=== PATIENT | female | born 1980 | race Caucasian/White ===

== ENCOUNTER → 2016-04-10 | Day surgery (SDC) | payer OTHER ==
[~2016-04-10] VITALS: Ht 175.3 cm; Wt 72.1 kg
[~2016-04-10] MED LIST: ACETAMINOPHEN 650 MG SUPP As Ordered ONE; BIOT1CAP2 PO; KETOROLAC 30 MG/ML VIAL (J1885) IV SCH; KETOROLAC 60 MG/2 ML VIAL (J1885) As Ordered ONE; LIDOCAINE 2% INJ 100 MG/5 ML SDV (FOR ANES.) As Ordered ONE; LR 1,000 ML IV SCH; MIDAZOLAM INJ 2 MG/2 ML VIAL (J2250) As Ordered ONE; MULTCAP8 PO; NAPR220C PO; NS 1,000 ML IV SCH; ONDANSETRON 4MG/2ML VIAL (J2405) As Ordered ONE; PROPOFOL 200 MG/20 ML VIAL As Ordered ONE; SODIUM CHLORIDE 0.9% 1000 ML IV ONE; dexameTHASONE 4 MG/ML 1ML VIAL (J1100) As Ordered ONE; diphenhydrAMINE 25 MG CAP PO ONE; fentaNYL 100 MCG/2 ML INJECTION (J3010) As Ordered ONE
[2016-04-10 08:52] LABS: MEAN CORPUSCULAR HEMOGLOBIN 32.4 pg (27.0-33.0); MEAN CORPUSCULAR HGB CONC 34.7 g/dl (32.0-36.5); MEAN CORPUSCULAR VOLUME 93.6 fl (80.0-96.0); RED CELL DISTRIBUTION WIDTH 11.4 % (11.5-14.5)
[2016-04-10 09:11] LABS: ANION GAP 9 MEQ/L (8-16); BLOOD UREA NITROGEN 13 MG/DL (7-18); CALCIUM LEVEL 9.3 MG/DL (8.5-10.1); CARBON DIOXIDE LEVEL 29 MEQ/L (21-32); CHLORIDE LEVEL 105 MEQ/L (98-107); CREATININE FOR GFR 0.79 MG/DL (0.55-1.02); GLOMERULAR FILTRATION RATE > 60.0 (>60); GLUCOSE, FASTING 95 MG/DL (70-105); POTASSIUM SERUM 4.2 MEQ/L (3.5-5.1); SODIUM LEVEL 143 MEQ/L (136-145)
[2016-04-10 09:39] LABS: CONTROL LINE UCG INT CTR LINE PRESENT
[2016-04-10 11:40] VITALS: BP 112/75
--- NOTE | 2016-04-22 09:37 | RO ---
DATE OF PROCEDURE: 04/10/2016 PREOPERATIVE DIAGNOSIS: Cervical stenosis, intramenstrual bleeding. POSTOPERATIVE DIAGNOSIS: Cervical stenosis, intramenstrual bleeding. OPERATION PROPOSED: Dilatation, hysteroscopy, dilation and curettage, insertion of Mirena intrauterine contraceptive device (IUCD). OPERATION PERFORMED: Hysteroscopy, dilation and curettage, dilatation of cervix, insertion Mirena. SURGEON: Isai Chaves MD [employer] DEVELOPMENT ENGINEER: ANESTHESIA: DESCRIPTION OF OPERATION: After time-out, adequate anesthesia, prepped and draped in lithotomy position, bladder draining 50 mL of dark urine. Weighted speculum in vagina. Single-tooth tenaculum to the anterior lip of cervix. Had extreme difficulty in locating the os. Eventually locating the os using a small dilator. We were able to thread that through, then dilated the cervix to a #8. There was a lot of debris and tissue coming out, mostly dark old stuff held back by the cervical stenosis. Hysteroscopic evaluation revealed a normal architecture of the lining. Os were noted right and let. Specimens were sent to pathology under separate cover. Uterus sounded to depth of 7 cm. Mirena IUCD was placed in the appropriate position with the strings cut to 3 inches. All instruments removed. Instrument and pad count correct. The patient was sent to recovery in good condition.
== END | disposition home or self-care (01) ==
LOC: M SDC 08:20
PROVIDERS: ATTEND Obstetrics & Gynecology
DX: N92.0 Excessive and frequent menstruation with regular cycle (principal); N88.2 Stricture and stenosis of cervix uteri; Z30.430 Encounter for insertion of intrauterine contraceptive device; Z88.8 Allergy status to other drugs, medicaments and biological substances; Z79.899 Other long term (current) drug therapy; Z91.040 Latex allergy status
CPT/HCPCS: 36415; 58300; 58558; 80048; 84703; 85027; 86850; 88305; J1100; J1885; J2250; J2405; J3010; J7298